=== PATIENT | female | born 1985 ===

== ENCOUNTER → 2021-02-26 10:32 | Outpatient (BNVA) | payer MEDICARE, MEDICAID, SELFPAY | PROVIDERS: Family Provider Family Medicine; PCP Family Medicine; Referring Provider Family Medicine; Visit Provider Specialist | DX: G35 Multiple sclerosis (principal); R20.0 Anesthesia of skin; R20.2 Paresthesia of skin; F17.210 Nicotine dependence, cigarettes, uncomplicated | CPT/HCPCS: 99204; 99205 ==

== ENCOUNTER → 2021-03-12 09:53 | Outpatient (BNVA) | payer MEDICARE, MEDICAID, SELFPAY | PROVIDERS: Family Provider Family Medicine; PCP Family Medicine; Visit Provider Specialist | DX: G62.89 Other specified polyneuropathies (principal); F17.200 Nicotine dependence, unspecified, uncomplicated | CPT/HCPCS: 95909; 95910 ==

== ENCOUNTER → 2021-04-29 09:47 | Outpatient (BNVA) | payer MEDICARE, MEDICAID, SELFPAY | PROVIDERS: Family Provider Family Medicine; PCP Family Medicine; Visit Provider Specialist | DX: R29.818 Other symptoms and signs involving the nervous system (principal); F17.210 Nicotine dependence, cigarettes, uncomplicated | CPT/HCPCS: 99215 ==